=== PATIENT | male | born 1995 | race Caucasian/White ===

== ENCOUNTER 2023-11-27 09:24 | Emergency (ER) | payer MEDICAID ==
[~2023-11-27] VITALS: Ht 167.6 cm; Wt 72.6 kg
[2023-11-27] MEDS ORDERED: Bacitracin Zinc 14 GM TUBE T ONE (09:55)
== END 2023-11-27 10:14 | disposition home or self-care (01) ==
LOC: ED 09:24
DX: S01.01XA Laceration without foreign body of scalp, initial encounter (principal); F17.200 Nicotine dependence, unspecified, uncomplicated; W22.8XXA Striking against or struck by other objects, initial encounter; Y93.89 Activity, other specified; Y92.89 Other specified places as the place of occurrence of the external cause; Y99.8 Other external cause status